=== PATIENT | male | born 1965 | race Hispanic/Latino ===

== ENCOUNTER 2025-01-21 09:17 | Outpatient (CLI) | payer OTHER | END 2025-01-21 09:18 | disposition home or self-care (01) | LOC: BICULT 09:17 | PROVIDERS: ATTEND Family Medicine | DX: Z13.6 Encounter for screening for cardiovascular disorders (principal); I70.90 Unspecified atherosclerosis | CPT/HCPCS: 76775 ==

== ENCOUNTER 2025-03-18 13:32 | Outpatient (CLI) | payer OTHER | END 2025-03-18 13:33 | disposition home or self-care (01) | LOC: BICCT 13:32 | PROVIDERS: ATTEND Family Medicine | DX: Z12.2 Encounter for screening for malignant neoplasm of respiratory organs (principal); F17.210 Nicotine dependence, cigarettes, uncomplicated | CPT/HCPCS: 71271 ==

== ENCOUNTER 2025-04-23 09:58 | Outpatient (CLI) | payer OTHER ==
[2025-04-23] MEDS ORDERED: Iopamidol 370 76% 100 ML VIAL ONE (14:43)
== END 2025-04-23 09:59 | disposition home or self-care (01) ==
LOC: CT 09:58
PROVIDERS: ATTEND Family Medicine
DX: I70.0 Atherosclerosis of aorta (principal); I74.5 Embolism and thrombosis of iliac artery; I70.8 Atherosclerosis of other arteries; K57.30 Diverticulosis of large intestine without perforation or abscess without bleeding; N32.89 Other specified disorders of bladder
CPT/HCPCS: 74178; Q9967